=== PATIENT | male | born 1985 | race Caucasian/White ===

== ENCOUNTER 2017-07-18 13:37 | Day surgery (SDC) | payer MEDICARE, MEDICAID ==
[2017-07-17 10:57] VITALS: BMI 31.6
[2017-07-18 14:09] LABS: #Basophils 0.1 thou/uL (0.0-0.2); #Eosinphils 0.1 thou/uL (0.0-0.7); #Lymphocytes 2.8 thou/uL (1.20-3.40); #Monocytes 0.7 thou/uL (0.11-0.59); #Neutrophils 5.5 thou/uL (1.40-6.50); %Eosinophils 1.6 % (0.0-10.0); %Lymphocytes 30.1 % (21.0-51.0); %Monocytes 7.3 % (0.0-10.0); Hemoglobin 18.2 g/dL (14.0-18.0); Mean Corpuscular HGB CONC 33.2 g/dL (32.0-36.0); Mean Corpuscular Volume 93.3 fl (80.0-94.0); Mean Platelet Volume 8.2 fL (7.4-10.4); Platelet Count 214 thou/uL (130-400); RBC Distribution Width 12.1 % (11.5-14.5); Red Blood Cell (RBC) Count 5.88 mill/uL (4.70-6.10); White Blood Cell (WBC) Count 9.2 thou/uL (4.8-10.8)
[2017-07-18] MEDS ORDERED: EPINEPHrine 1 MG/ML AMP ONE ×2 (15:11→15:32)
[2017-07-18] MEDS ORDERED: Bupivacaine PF 0.5% 30 ML VIAL ONE (15:11)
[2017-07-18] MEDS ORDERED: Bacitracin Zinc Ointment 30 gm TUBE ONE (15:18)
[2017-07-18] MEDS ORDERED: CEFAZOLIN/Water 2 GM/20 ML SYRINGE ONE (15:20)
[2017-07-18] MEDS ORDERED: Fentanyl 250 MCG/5 ML VIAL ONE (15:23)
[2017-07-18] MEDS ORDERED: Ketorolac Tromethamine 30 MG/ML VIAL ONE ×2 (15:26→19:47)
[2017-07-18] MEDS ORDERED: Ondansetron HCl/PF 4 MG/2 ML Vial ONE (15:26)
[2017-07-18] MEDS ORDERED: EPINEPHrine 1 MG/10 ML Abboject SYRINGE ONE (15:26)
[2017-07-18] MEDS ORDERED: Propofol 200 MG/20 ML VIAL ONE (15:26)
[2017-07-18] MEDS ORDERED: Glycopyrrolate 0.2 MG/ML 5 ML SYRINGE ONE (15:26)
[2017-07-18] MEDS ORDERED: Lidocaine 1% PF 5 ML VIAL ONE (15:26)
[2017-07-18] MEDS ORDERED: Dexamethasone 20 MG/5 ML VIAL ONE (15:26)
[2017-07-18] MEDS ORDERED: Fentanyl 100 MCG/2 ML VIAL ONE ×2 (20:00→20:24)
--- NOTE | 2017-07-18 20:04 | RAD ---
FOUR INTRAOPERATIVE FLUOROSCOPIC IMAGES RIGHT WRIST 07/18/17 HISTORY: Arthroscopy and surgery right wrist. FINDINGS/IMPRESSION: There are postsurgical changes with pins overlying the lunatotriquetral joint with metallic anchors a lso overlying the joint space in this region. Correlation with intraoperative findings is recommended . POS: [facility]
[2017-07-18] MEDS ORDERED: HYDROcodone/Acetaminophen 7.5/325 mg Tablet ONE (20:53)
--- NOTE | 2017-07-19 06:58 | OP ---
DATE OF PROCEDURE: 07/18/2017 PREOPERATIVE DIAGNOSES: 1. 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 2. Lunate-triquetral ligament possible tear. 3. Triquetrum fragment probable healed malunion with minimal intra-articular involvement. 4. Triangular fibrocartilage peripheral dorsal tear. FINDINGS: 1. 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 2. Lunate-triquetral ligament possible tear. 3. Triquetrum fragment probable healed malunion with minimal intra-articular involvement. 4. Triangular fibrocartilage peripheral dorsal tear. 5. Subsheath tear distal 5 mm ulnar styloid extended approximately 1 cm out that for total of 2 cm o f a tear. 6. Radiotriquetral ligament tear of a 1 cm area with a flap of cartilage seen and obvious migration and separation with activity visualized through the scope and repaired open. 7. Triangular fibrocartilage tear, involving the dorsal peripheral rim almost 1 cm initially appeare d to be a possible complete tear when probed and was scoped, it was 3 quarters of depth so it was ind icative of one that may needed to be repair. 8. Marked synovitis dorsal and central wrist. OTHER FINDINGS: Normal lunate and scapholunate articulation except for the area of the lunotriquetra l tear. The side wall peripherally involved the triangle fibrocartilage along with the other portion of the ulnocarpal apparatus appeared to not be abnormal. There was no scapholunate abnormality. Th ere was evidence of a scar over the central portion of the radius indicative of a fracture line betwe en the lunate and scaphoid fossa or the medial and lateral complex. COMPLICATIONS: None. PROCEDURE PERFORMED: 1. Lunate-triquetral ligament repairwith pinning of the lunotriquetral joint. 2. Extensor carpi ulnaris sheath, small tenosynovectomy with subsheath repair. 3. Dorsal triquetral malunion exploration, but completely healed fracture. 4. Triangular fibrocartilage repair. 5. Arthroscopic synovectomy all at the right wrist. TOURNIQUET TIME: 101 minutes. ESTIMATED BLOOD LOSS: 25 mL DESCRIPTION OF PROCEDURE: After successful general endotracheal anesthesia, the limb was prepped and draped. The patient then had the timeout accomplished, draped and include placing the arm in 10 melvin nds of boom-type traction with the arm secured gently and well-padded to the table as a base. We the n established the 2, 3, 6U and 6R portals and performed panoramic view of the wrist with 1.9/2-0 scop e and with a shaver, alternate between portals, we were able to perform a synovectomy because we foun d synovitis in the central and dorsal wrist. Scapholunate ligament probed. No abnormality. No abno rmality dorsal scaphoid or dorsal lunate. There was, however, near the scapholunate at the junction between the medial complex and the styloid process, a thickening of the bone consistent with a healed intra-articular fracture, this was probed. There were no loose bodies. We now alternated visualization portals on the ulnar aspect and saw a lunotriquetral flap tear, which was unusual and it is approximately 7-8 mm of it. The avulsion was off the lunate and this was at t he deepest point and the most dorsal point. The avulsion point was off the triquetrum. We also visu alized after doing a very copious almost 1 mm x 1 mm probing of the triangular fibrocartilage complex . No volar or direct lateral side wall tear, but the dorsal portion had a longitudinal tear of almos t 1 cm that appeared to be approximately 3 quarters to 4 quarters, but when probed with visualize lat er it would not show a complete tear, but only 3 quarters, so still indicative of a size that should be repaired. Because of the findings listed above, and the possible instability associated with it, and the question of the extensor carpi ulnaris sheath on the MRI preop, we decided to perform an open approach and abandoned the arthroscopy. Limb was exsanguinated, tourniquet was inflated to 250 mmHg pressure, and then we entered the wrist joint through the floor of the fifth dorsal compartment. Th e extensor tendon was then retracted radially and here, as soon as we began into the joint, we saw a large amount of thickening over the extensor carpal ulnaris and expected this and then found the subs danni tear as described in the findings above. We could visualize now the tear and again as said bef ore it was a zigzag type tear with one-third of the 12 mm tear coming from avulsed off the triquetrum and then the deepest being avulsed off the lunate. Two separate anchors were placed at repair and a trough appropriately to each bone with a curet. Then, we placed the anchor as close to the edge of the osteochondral surface as possible, but barely completed this on frontal sagittal planes and visua lization was not in the joint. We then placed the curved needle suture in each of the tear x2 and wa s able to easily reapproximate, but before we could tie it, we have to have a stable lunotriquetral a bhavya, so we placed a K-wire into the triquetrum and under direct visualization, was able to adjust the lunate, so it would be less tension on the repair and reduced the midcarpal joint anatomically. Bot h K-wires were placed in frontal sagittal plane. Excellent position from the triquetrum to the lunat e and we then doing the visitation sagittal plane and this position was able to see, where the previo us fragment of the dorsum triquetrum was located. We then dissected down to this point and saw that the osteochondral fracture had healed enough that we could not separate it from the body of the triqu etrum indicative of a healed tear, although slightly displaced. The base of this tear and osteochond ral standpoint was the exact dorsal edge of the lunotriquetral ligament tear. Now we finished lunotriquetral ligament tear, we irrigated, inspected the triangular fibrocartilage a gain and found the area where we had debrided and saw a three quarters depth tear. At this time, abl e to probe through the distal radial ulnar joint. There was no hole or communication, but was clear it was ultrathin. We then debrided this with the shaver, completed the tear in the part where it was thinnest, and then repaired using interrupted [id number] 4-0 Prolenes x3 separate sutures. This gave excellent tension to the distal radial ulnar joint. There was no evidence of laxity whatso ever. The tourniquet was deflated, we completed the repair by tying all the sutures including the capsule o f the triquetrum, where we had exposed the fragment. The subsheath was repaired and closed with a ru nning 3-0 Monocryl. A running 2-0 Vicryl was used to close the wrist capsule. The retinaculum over the fifth dorsal compartment was then repaired using interrupted 4-0 Monocryl. A 4-0 Monocryl was us ed in interrupted fashion to close the primary incision. Deep dermal layer and epidermis was closed with interrupted 4-0 nylon in a mattress pattern. A simple nylon was used to close the 6U, 6R portal as well as the same suture for the 2, 3 portal. The patient had an injection of a total of 30 mL 0.5% Marcaine divided equally between all wounds, wa s awakened after being placed in a bulky dressing and a sugar tong splint to leave the operating room without evidence of anesthetic or operative complication.
== END 2017-07-18 21:34 | disposition home or self-care (01) ==
LOC: SDC 13:37
PROVIDERS: ATTEND Orthopaedic Surgery Hand Surgery
PROC: 0RQ Upper Joints, Repair (ICD-10-PCS; principal; 2017-07-18)
DX: S63.591A Other specified sprain of right wrist, initial encounter (principal); M77.9 Enthesopathy, unspecified; S63.511A Sprain of carpal joint of right wrist, initial encounter; M65.9 Synovitis and tenosynovitis, unspecified; M25.331 Other instability, right wrist; F17.210 Nicotine dependence, cigarettes, uncomplicated; Z82.3 Family history of stroke; Z79.899 Other long term (current) drug therapy; Z98.890 Other specified postprocedural states
CPT/HCPCS: 25320; 73110; 76001; 85025; 96372; 96374; C1713; 36415; J0131; J0171; J1100; J1170; J1885; J2001; J2405; J2704; J3010; S0020

== ENCOUNTER 2018-03-20 10:38 | Outpatient (CLI) | payer MEDICARE ==
--- NOTE | 2018-03-20 14:25 | MRI ---
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 COMPARISON: C-arm radiographs dated 07/18/2017 from [facility] and MR arthrogram of the r ight wrist dated 01/03/2013. TECHNIQUE: Multiplanar, multisequence MR images were obtained of the right wrist without IV contrast. Motion ar tifact heavily limits image detail due to patient pain. FINDINGS: There is susceptibility artifact in the region of the lunate, as well as the triquetrum, likely relat ed to the patient's reported lunatotriquetral ligament reconstruction. This susceptibility artifact limits detail of the lunotriquetral ligamentous structures. The scapholunate ligament appears intact . The extrinsic ligaments of the wrist appear roughly intact. The ECU demonstrates some mild tendinosis at the level of the ulnar head and ulnar styloid process. Remaining extensor tendons and visualized flexor tendons are normal appearing. The median and ulnar nerve appear within normal limits. The TFC is intact. Susceptibility artifact slightly limits visualization of its volar segment. No d efinite joint effusion is evident. The visualized intermetacarpal ligaments of the second through fi fth digits appear intact. IMPRESSION: 1. Postoperative right wrist. 2. Mild extensor carpi ulnaris tendinosis. POS: [facility]
== END 2018-03-20 10:39 | disposition home or self-care (01) ==
LOC: SCSMRI 10:38
PROVIDERS: ATTEND Orthopaedic Surgery Hand Surgery
DX: S63.094A Other dislocation of right wrist and hand, initial encounter (principal); S66.801A Unspecified injury of other specified muscles, fascia and tendons at wrist and hand level, right hand, initial encounter; M25.331 Other instability, right wrist; M67.833 Other specified disorders of tendon, right wrist; Z98.890 Other specified postprocedural states